=== PATIENT | female | born 1965 | race Caucasian/White ===

== ENCOUNTER 2019-10-05 07:08 | Day surgery (SDC) | payer MEDICAID ==
[~2019-10-05 07:08] MED LIST: Lactated Ringers 1,000 ML IV SCH; Lidocaine 1%/Sod Bicarbonate in NS 8.4% 1 ML Syringe IDERM PRN; Sodium Chloride 0.9% 10 ML Syringe FLUSH PRN
--- NOTE | 2019-10-05 07:59 | PCM.PREANE ---
Preanesthetic Assessment - Procedure Proposed Procedure: Colonoscopy - Anesthesia/Transfusion/Family Hx Anesthesia History: Prior Anesthesia Reaction Type of Anesthesia Reaction: Excessive Nausea/Vomiting - Review of Systems General: No Symptoms Pulmonary: No Symptoms Cardiovascular: No Symptoms Gastrointestinal: No Symptoms Neurological: No Symptoms Other: Reports: Depression, Anxiety - Physical Assessment NPO Status Date: 10/04/19 NPO Status Time: 21:00 Vital Signs: Last Vital Signs Temp 98.0 F 10/05/19 07:20 Pulse 99 10/05/19 07:20 Resp 20 10/05/19 07:20 BP 117/74 10/05/19 07:20 Pulse Ox 95 10/05/19 07:20 ASA Class: 3 Mental Status: Alert & Oriented x3 Dentition: Reports: Normal Dentition ROM/Head Extension: Full Lungs: Clear to Auscultation, Normal Respiratory Effort Cardiovascular: Regular Rate, Regular Rhythm - Lab Values: Laboratory Last Values POC Glucose 215 mg/dL (70-105) H 10/05/19 07:41 COVID-19 PCR Not detected (NOT DETECT) 10/03/19 10:15 - Allergies Allergies/Adverse Reactions: Allergies Allergy/AdvReac Type Severity Reaction Status Date / Time acetaminophen [From Percocet] Allergy Headache Verified 10/04/19 16:35 meperidine [From Demerol] Allergy Nausea and Verified 10/04/19 16:35 Vomiting oxycodone [From Percocet] Allergy Headache Verified 10/04/19 16:35 promethazine [From Phenergan] Allergy Nausea and Verified 10/04/19 16:35 Vomiting Tetracyclines Allergy Nausea and Verified 10/04/19 16:35 Vomiting - Anesthesia Plan Beta Lizzy: Carvedilol Med Last Dose Date: 10/05/19 Med Last Dose Time: 06:30 - Acknowledgements Anesthesia Type Planned: MAC Pt an Appropriate Candidate for the Planned Anesthesia: Yes Alternatives and Risks of Anesthesia Discussed w Pt/Guardian: Yes Pt/Guardian Understands and Agrees with Anesthesia Plan: Yes PreAnesthesia Questionnaire HEENT History: Reports: Impaired Vision, Other (See Below) Other HEENT History: reading glasses Cardiovascular History: Reports: CAD, High Cholesterol, Hypertension, [place], Other (See Below) Other Cardiovascular History: angioplasty Respiratory History: Reports: Sleep Apnea Gastrointestinal History: Reports: None Genitourinary History: Reports: None EXCEL DEVELOPER History: Reports: Endometrial Ablation, , Other (See Below) Other OB/BYN History: laparsocopy Musculoskeletal History: Reports: Fibromyalgia, RA Neurological History: Reports: None Psychiatric History: Reports: Anxiety, Depression Endocrine/Metabolic History: Reports: Diabetes, Type II, Hypothyroidism, Obesity/BMI 30+ (morbid obesity) Hematologic History: Reports: None Immunologic History: Reports: SLE Oncologic (Cancer) History: Reports: None Dermatologic History: Reports: Other (See Below) Other Dermatologic History: cyst excision - Infectious Disease History Infectious Disease History: Reports: None - Past Surgical History Head Surgeries/Procedures: Reports: None HEENT Surgical History: Reports: None Cardiovascular Surgical History: Reports: None Respiratory Surgical History: Reports: None GI Surgical History: Reports: Cholecystectomy, Colonoscopy, EGD Female Surgical History: Reports: Section, D&C, Tubal Ligation Male Surgical History: Reports: None Endocrine Surgical History: Reports: None Neurological Surgical History: Reports: None Musculoskeletal Surgical History: Reports: None Oncologic Surgical History: Reports: None - SUBSTANCE USE Smoking Status *Q: Never Smoker Recreational Drug Use History: No - HOME MEDS Home Medications: Home Meds ALPRAZolam [Alprazolam] 0.5 mg PO Q12H PRN 10/04/19 [History] Aspirin 81 mg PO DAILY 10/04/19 [History] Elderberry Fruit and Flower [Black Elderberry 575 mg Cap] 2 cap PO DAILY 10/04/19 [History] Empagliflozin [Jardiance] 10 mg PO DAILY 10/04/19 [History] Exenatide Microspheres [Bydureon Pen] 2 mg SQ SA 10/04/19 [History] Fish Oil/[place]-3 Fatty Acids [Fish Oil 1,000 MG] 2 g PO DAILY 10/04/19 [History] Furosemide 40 mg PO DAILY PRN 10/04/19 [History] L.acidoph,Paracasei, B.lactis [Probiotic] 1 cap PO DAILY 10/04/19 [History] Levothyroxine 112 mcg PO DAILY 10/04/19 [History] Lisinopril/Hydrochlorothiazide [Lisinopril-Hctz 20-12.5 mg Tab] 1 tab PO DAILY 10/04/19 [History] Lovastatin 80 mg PO BEDTIME 10/04/19 [History] Multivitamin [Poly-Vitamin] 1 tab PO DAILY 10/04/19 [History] Psyllium Husk [Metamucil] 1 dose PO DAILY 10/04/19 [History] Venlafaxine [Effexor XR] 75 mg PO BEDTIME 10/04/19 [History] Zolpidem [Ambien] 10 mg PO BEDTIME PRN 10/04/19 [History] carvediloL [Carvedilol] 3.125 mg PO BID 10/04/19 [History] metFORMIN HCl [Metformin HCl ER] 750 mg PO DAILY 10/04/19 [History] - CURRENT (IN HOUSE) MEDS Current Meds: Current Medications Lactated Ringer's (Ringers, Lactated) 1,000 mls @ 125 mls/hr IV ASDIRECTED NETTA Stop: 10/05/19 23:00 Lidocaine/Sodium Bicarbonate (Buffered Lidocaine 1% In Ns 8.4%) 0.25 ml IDERM ONETIME PRN PRN Reason: Prior to IV Start Stop: 10/05/19 18:00 Sodium Chloride (Saline Flush) 10 ml FLUSH ASDIRECTED PRN PRN Reason: Keep Vein Open Stop: 10/05/19 18:00
[2019-10-05] MEDS ORDERED: Propofol 200 MG/20 ML SDV ONE (08:30)
[2019-10-05] MEDS ORDERED: fentaNYL 100 MCG/2 ML SDV ONE (08:30)
[2019-10-05] MEDS ORDERED: Midazolam 1 MG/ML 2 ML SDV ONE (08:31)
[2019-10-05] MEDS ORDERED: Lidocaine 1% 4 ML ONE (08:32)
--- NOTE | 2019-10-05 09:48 | PCM.OPNOTE ---
- General Post-Op/Procedure Note Date of Surgery/Procedure: 10/05/19 Operative Procedure(s): Colonoscopy with hemorrhoid banding Findings: 1. Diverticulosis 2. Transverse colon polyp 3. Descending colon polyp 4. Internal hemorrhoid Pre Op Diagnosis: Rectal bleeding, History of colon polyps Post-Op Diagnosis: same Anesthesia Technique: MAC Primary Surgeon: Berenice Cade Anesthesia Provider: Beau Jett Pathology: 1. Transverse colon polyp 2. Descending colon polyp Fluid Replacement, Intraop: 1,000 Output, Urine Amount: 0 EBL in mLs: 0 Complications: none apparent Condition: Good
--- NOTE | 2019-10-05 09:56 | PCM.PRNOTE ---
- Free Text/Narrative Note: Operative Report Date of Surgery/Procedure: October 05, 2019 Operative Procedure: Colonoscopy to cecum with hemorrhoid banding Pre Op Diagnosis: rectal bleeding and history of colon polyps Post-Op Diagnosis: same Surgeon: Berenice Cade MD Anesthesia Technique: MAC Anesthesia Provider: Beau Jett CRNA IV Fluid Replacement, Intraop: 1000cc Output, Urine Amount: 0cc EBL : 0cc Findings: 1. Diverticulosis 2. Transverse colon polyp 3. Descending colon polyp 4. Internal hemorrhoids Specimens: 1. Transverse colon polyp 2. Descending colon polyp Indication: The patient is a 54 year-old lady who presented to the outpatient clinic requesting colonoscopy. The patient has a history of rectal bleeding with what she reports as her hemorrhoids. She also has a history of colon polyps. We discussed the procedure of a colonoscopy including the polypectomy and biopsy, with possible hemorrhoid banding. Risks of bleeding and perforation were discussed, the patient understood and wished to proceed. Written and consent was obtained Description of the procedure: The patient was brought to the endoscopy suite and placed in the left lateral decubitus position. Appropriate monitors were applied. The patient was given MAC anesthesia. An anorectal examination was performed, revealing tight sphincter tone. The scope was placed into the rectum and advanced to cecum with moderate difficulty requiring external abdominal pressure. The patients cecum was entered, and the ileocecal valve and appendiceal orifice were identified and normal. At this point, the scope was withdrawn, paying careful attention to the mucosa. The patient had adequate bowel prep, allowing for visualization of colon polyps and also required washing and suctioning. Diffuse diverticulosis was noted extending from the sigmoid and descending colon into the transverse and ascending colon. A flat 4 mm polyp was noted in the transverse colon which was removed using a jumbo cold biopsy forceps. An additional 3 mm flat polyp was found in the descending colon which was removed using a jumbo cold biopsy forceps. In the rectum, the scope was retroflexed and no abnormalities were noted, except for some hemorrhoidal tissue. The colonoscope was then withdrawn the hemorrhoid banding device was inserted into the anus and the hemorrhoidal cushions evaluated. 3 hemorrhoid bands were then placed into this area. There was some oozing noted from the band placement. The patient tolerated the procedure well. Complications: none apparent Condition: Good, transported to PACU in stable condition Berenice Cade MD General Surgery
--- NOTE | 2019-10-05 09:58 | PCM48HPAN ---
Post Anesthesia Note - EVALUATION WITHIN 48HRS OF ANESTHETIC Vital Signs in Normal Range: Yes Patient Participated in Evaluation: Yes Respiratory Function Stable: Yes Airway Patent: Yes Cardiovascular Function Stable: Yes Hydration Status Stable: Yes Pain Control Satisfactory: Yes Nausea and Vomiting Control Satisfactory: Yes Mental Status Recovered: Yes Vital Signs: Last Vital Signs Temp 97.2 F 10/05/19 09:49 Pulse 68 10/05/19 09:49 Resp 16 10/05/19 09:49 BP 124/77 10/05/19 09:49 Pulse Ox 97 10/05/19 09:49
== END 2019-10-05 10:41 | disposition home or self-care (01) ==
LOC: JD.SDS 07:08
PROVIDERS: ATTEND Surgery
DX: D12.3 Benign neoplasm of transverse colon (principal); K64.8 Other hemorrhoids; K57.30 Diverticulosis of large intestine without perforation or abscess without bleeding; F41.9 Anxiety disorder, unspecified; F32.9 Major depressive disorder, single episode, unspecified; E78.00 Pure hypercholesterolemia, unspecified; I10 Essential (primary) hypertension; G47.30 Sleep apnea, unspecified; M79.7 Fibromyalgia; G47.00 Insomnia, unspecified; E66.01 Morbid (severe) obesity due to excess calories; E03.9 Hypothyroidism, unspecified; Z11.59 Encounter for screening for other viral diseases; Z88.6 Allergy status to analgesic agent; Z88.5 Allergy status to narcotic agent; Z98.890 Other specified postprocedural states; Z86.010 Personal history of colon polyps; Z79.82 Long term (current) use of aspirin; Z79.899 Other long term (current) drug therapy; Z79.890 Hormone replacement therapy; Z68.43 Body mass index [BMI] 50.0-59.9, adult
CPT/HCPCS: 45380; 46221; 82962; 87635; J2001; J2250; J2704; J3010; J7120; 00902; U0002

== ENCOUNTER 2020-07-28 02:23 | Emergency (ER) | payer BC, MEDICAID ==
--- NOTE | 2020-07-28 03:05 | EDM.PDOC ---
ED HPI GENERAL MEDICAL PROBLEM - General Chief Complaint: RADIO PERFORMER Problem Stated Complaint: VAGINAL BLEEDING Time Seen by Provider: 07/28/20 02:39 Source of Information: Reports: Patient, Family (Daughter) History Limitations: Reports: No Limitations - History of Present Illness INITIAL COMMENTS - FREE TEXT/NARRATIVE: Mrs. Choudhury is a pleasant 55-year-old woman who now presents to the ED stating that she developed suprapubic pressure and urinary urgency around midnight tonight. When she urinated, she noticed that the urine was pinkish in color, with small blood clots. She states that she subsequently inserted a tampon into her vagina, urinated, and when she removed the tampon, noticed that it appeared to have some pinkish tint, as well. She is concerned that she may be having some vaginal bleeding, and is frightened that she has endometrial cancer. The patient states that her LMP was in 2002, prior to her undergoing an endometrial ablation that year. The patient is on a daily baby aspirin, but not an anticoagulant. Here in the ED, the patient's initial BP is found to be modestly elevated at 149/92, with tachycardia 113 bpm. She is afebrile, saturating 96% on room air. She appears to be quite anxious, although is in no acute distress. The patient reports that she has had 4 days of mild intermittent right upper quadrant abdominal pain. It tends to be brought on by movements. Otherwise, the patient denies having a recent fever, chills, sore throat, ear pain, nasal or sinus congestion, cough, dyspnea, chest pain, palpitations, nausea, vomiting, constipation, diarrhea, abdominal pain, urinary symptoms, recent weight gain or weight loss, recent bloody bowel movements or black bowel movements, recent joint aches, headaches, or rashes. The patient's PCP is Blanca Fernández NP. Her Surgeon is Dr. Berenice Cade. - Related Data Allergies Allergy/AdvReac Type Severity Reaction Status Date / Time acetaminophen [From Percocet] Allergy Headache Verified 07/28/20 02:44 meperidine [From Demerol] Allergy Nausea and Verified 07/28/20 02:44 Vomiting oxycodone [From Percocet] Allergy Headache Verified 07/28/20 02:44 promethazine [From Phenergan] Allergy Nausea and Verified 07/28/20 02:44 Vomiting Tetracyclines Allergy Nausea and Verified 07/28/20 02:44 Vomiting Home Meds: Home Meds ALPRAZolam [Alprazolam] 0.5 mg PO Q12H PRN 10/04/19 [History] Aspirin 81 mg PO DAILY 10/04/19 [History] Elderberry Fruit and Flower [Black Elderberry 575 mg Cap] 2 cap PO DAILY 10/04/19 [History] Empagliflozin [Jardiance] 10 mg PO DAILY 10/04/19 [History] Exenatide Microspheres [Bydureon Pen] 2 mg SQ SA 10/04/19 [History] Fish Oil/[place]-3 Fatty Acids [Fish Oil 1,000 MG] 2 g PO DAILY 10/04/19 [History] Levothyroxine 112 mcg PO DAILY 10/04/19 [History] Lisinopril/Hydrochlorothiazide [Lisinopril-Hctz 20-12.5 mg Tab] 1 tab PO DAILY 10/04/19 [History] Lovastatin 80 mg PO BEDTIME 10/04/19 [History] Multivitamin [Poly-Vitamin] 1 tab PO DAILY 10/04/19 [History] Psyllium Husk [Metamucil] 1 dose PO DAILY 10/04/19 [History] Venlafaxine [Effexor XR] 75 mg PO BEDTIME 10/04/19 [History] Zolpidem [Ambien] 10 mg PO BEDTIME PRN 10/04/19 [History] carvediloL [Carvedilol] 3.125 mg PO BID 10/04/19 [History] metFORMIN HCl [Metformin HCl ER] 750 mg PO DAILY 10/04/19 [History] Chlorpheniramine Maleate [Allergy Relief] 4 mg PO ASDIRECTED PRN 07/28/20 [History] Docusate Sodium [Colace] 100 mg PO BID PRN 07/28/20 [History] Past Medical History HEENT History: Reports: Impaired Vision (reading glasses) Cardiovascular History: Reports: High Cholesterol, Hypertension Respiratory History: Reports: Sleep Apnea (suspected, not tested) Gastrointestinal History: Reports: Colon Polyp, Diverticulosis Psychiatric History: Reports: Anxiety, Depression, Other (See Below) (Fibromyalgia) Endocrine/Metabolic History: Reports: Diabetes, Type II, Hypothyroidism, Obesity/BMI 30+ Immunologic History: Reports: SLE - Past Surgical History GI Surgical History: Reports: Cholecystectomy (2004), Colonoscopy (x 1), Other (See Below) (Exploratory laparoscopy) Female Surgical History: Reports: Section (x 4), D&C (x 1), Endometrial Ablation (2003) Social & Family History - Tobacco Use Tobacco Use Status *Q: Never Tobacco User Second Hand Smoke Exposure: No - Caffeine Use Caffeine Use: Reports: Tea - Alcohol Use Alcohol Use History: No - Recreational Drug Use Recreational Drug Use: No - Living Situation & Occupation Living situation: Reports: , with Spouse, with Family (2 kids) Occupation: Unemployed ED ROS GENERAL - Review of Systems Review Of Systems: Comprehensive ROS is negative, except as noted in HPI. ED EXAM, RENAL/ - Physical Exam Exam: See Below Exam Limited By: No Limitations General Appearance: Alert, WD/WN, Anxious Eye Exam: Bilateral Eye: EOMI, Normal Inspection Ears: Normal External Exam, Hearing Grossly Normal Nose: Normal Inspection Throat/Mouth: Normal Inspection, Normal Lips, Normal Voice, No Airway Compromise Head: Atraumatic, Normocephalic Neck: Normal Inspection, Full Range of Motion Respiratory/Chest: No Respiratory Distress, Lungs Clear, Normal Breath Sounds, No Accessory Muscle Use Cardiovascular: Normal Peripheral Pulses, Regular Rate, Rhythm, No Gallop, No JVD, No Murmur, No Rub GI/Abdominal: Normal Bowel Sounds, Soft, No Organomegaly, No Distention, No Abnormal Bruit, No Mass, Tender (Very slight, RUQ, however, when same area re- palpated, it was not tender the second time) (Female) Exam: Other (No blood, vaginal lesions, vaginal injury, or foreign bodies seen in the vagina. Her nulliparous cervix was closed, with no bleeding. Early vaginal atrophy noted.) Back Exam: Normal Inspection, Full Range of Motion, NT Extremities: Normal Inspection, Normal Range of Motion, Normal Capillary Refill Neurological: Alert, Oriented, Normal Cognition, No Motor/Sensory Deficits Psychiatric: Anxious Skin Exam: Warm, Dry, Intact, Normal Color, No Rash Course - Vital Signs Last Recorded V/S: Last Vital Signs Temp 36.2 C 07/28/20 02:41 Pulse 113 H 07/28/20 02:41 Resp 16 07/28/20 02:41 BP 149/92 H 07/28/20 02:41 Pulse Ox 96 07/28/20 02:41 - Orders/Labs/Meds Orders: Active Orders 24 hr Category Date Time Status CULTURE URINE [MREF] Stat Lab 07/28/20 03:29 Ordered Labs: Laboratory Tests 07/28/20 07/28/20 Range/Units 02:59 02:59 Urine Color Red H (Yellow) Urine Appearance Cloudy H (Clear) Urine pH 6.0 (5.0-8.0) Ur Specific Novelty 1.010 (1.005-1.030) Urine Protein 2+ H (Negative) Urine Glucose (UA) 2+ H (Negative) Urine Ketones Negative (Negative) Urine Occult Blood 3+ H (Negative) Urine Nitrite Negative (Negative) Urine Bilirubin Negative (Negative) Urine Urobilinogen 0.2 (0.2-1.0) Ur Leukocyte Esterase 1+ H (Negative) Urine RBC >100 H (0-5) /hpf Urine WBC >100 H (0-5) /hpf Ur Squamous Epith Cells 0-5 (0-5) /hpf Urine Bacteria Moderate H (FEW) /hpf Urine Mucus Not seen (FEW) /hpf Urine HCG, Qual Negative (NEGATIVE) - Re-Assessments/Exams Free Text/Narrative Re-Assessment/Exam: 07/28/20 03:00 As above, the patient developed the sensation of suprapubic pressure with urinary urgency around midnight tonight, then noticed that she had some pink- tinged urine with small blood clots. She subsequently inserted a tampon into her vagina, urinated, then removed the tampon, finding it to have a pinkish tint, as well. She also reports about 4 days of some right upper quadrant abdominal pain, despite having undergone a cholecystectomy in 2003. On examination, she has mild right upper quadrant tenderness, with no tenderness elsewhere. I have ordered a urinalysis by quick-catheter, along with a urine test, even though it is highly unlikely that this is an unusual case of , since the patient's LMP was 2002, prior to an endometrial ablation. Nevertheless, I think it is important to rule out. After her urine has been collected, I will perform a pelvic exam to see if there is any blood in the vagina. 07/28/20 03:20 On pelvic examination, no blood, vaginal lesions, vaginal injury, or foreign bodies were seen in the vagina. The patient's nulliparous cervix was closed, with no bleeding. Early vaginal atrophy noted. 07/28/20 03:30 The patient's urinalysis is remarkable for red/cloudy appearance, 3+ occult blood with >100 RBCs, 1+ leukocyte esterase with >100 WBCs, nitrate negative with moderate bacteria, and 0-5 squamous epithelial cells. Based on the above, I have ordered a urine culture. 07/28/20 03:36 Test results discussed with the patient and her daughter. As above, the patient has simple cystitis. I will prescribe nitrofurantoin; the patient prefers a prescription via [facility]. She declined an offer for Pyridium. She is to stay adequately hydrated. I would like her to contact Blanca Fernández's office on Thursday to have them check on the urine culture results, to make sure that she is on the correct antibiotic. Departure - Departure Time of Disposition: 03:37 Disposition: Home, Self-Care 01 Condition: Good Clinical Impression: Cystitis - Discharge Information *PRESCRIPTION DRUG MONITORING PROGRAM REVIEWED*: Not Applicable *COPY OF PRESCRIPTION DRUG MONITORING REPORT IN PATIENT JOLIE: Not Applicable Instructions: Urinary Tract Infection, Adult, [id number] Referrals: Blanca Fernández NP [Primary Care Provider] - Berenice Cade MD [Physician] - Forms: ED Department Discharge Additional Instructions: You were seen in the emergency room after developing an urgent need to urinate, and seeing pink-tinged urine with small blood clots. Work-up in the ER included a urinalysis and urine test. Your urinalysis indicates that you have a urinary tract infection. Your urine test was negative. A sample of your urine has been sent for culture. A prescription for the antibiotic nitrofurantoin (Macrobid) has been provided to you via [facility]. Take 1 tablet of nitrofurantoin every 12 hours, as prescribed. Finish the entire prescription unless told otherwise by your PCP. Stay adequately hydrated. It does not really matter what type of fluid you drink. We recommend that you contact the office of your PCP, Blanca Fernández NP, on 07/30/2020, to have them check on your urine culture result, to make sure that you are on the correct antibiotic. If any other problems, please do not hesitate to return to the ER. Sepsis Event Note (ED) - Evaluation Sepsis Screening Result: No Definite Risk - Focused Exam Vital Signs: Vital Signs Temp Pulse Resp BP Pulse Ox 07/28/20 02:41 36.2 C 113 H 16 149/92 H 96 - My Orders Last 24 Hours: My Active Orders 07/28/20 03:29 CULTURE URINE [MREF] Stat - Assessment/Plan Last 24 Hours: My Active Orders 07/28/20 03:29 CULTURE URINE [MREF] Stat
== END 2020-07-28 04:01 | disposition home or self-care (01) ==
LOC: JD.ED 02:23
DX: N30.90 Cystitis, unspecified without hematuria (principal); I10 Essential (primary) hypertension; E11.9 Type 2 diabetes mellitus without complications; E66.9 Obesity, unspecified; E78.00 Pure hypercholesterolemia, unspecified; Z88.5 Allergy status to narcotic agent; Z88.1 Allergy status to other antibiotic agents; Z88.8 Allergy status to other drugs, medicaments and biological substances; Z79.82 Long term (current) use of aspirin; Z79.899 Other long term (current) drug therapy
CPT/HCPCS: 81001; 81025; 87086; 99283; 99284